=== PATIENT | female | born 1940 | race Caucasian/White ===

== ENCOUNTER 2017-10-03 11:57 | Outpatient (CLI) | payer OTHER | END 2017-10-03 17:00 | disposition home or self-care (01) | LOC: MAMO-SONO 11:57 | DX: Z12.31 Encounter for screening mammogram for malignant neoplasm of breast (principal); Z87.898 Personal history of other specified conditions; N60.11 Diffuse cystic mastopathy of right breast; N60.12 Diffuse cystic mastopathy of left breast ==

== ENCOUNTER 2017-10-12 12:50 | Outpatient (CLI) | payer OTHER | END 2017-10-12 13:00 | disposition home or self-care (01) | LOC: NUCLEAR 12:50 | DX: M81.0 Age-related osteoporosis without current pathological fracture (principal) ==

== ENCOUNTER 2019-07-19 16:00 | Emergency (ER) | payer OTHER ==
[~2019-07-19] VITALS: Ht 165.1 cm; Wt 53.5 kg
[2019-07-19] MEDS ORDERED: SYNTHROID50 MCG (16:43)
== END 2019-07-19 18:50 | disposition home or self-care (01) ==
LOC: ER 16:00
DX: S42.321A Displaced transverse fracture of shaft of humerus, right arm, initial encounter for closed fracture (principal); W18.39XA Other fall on same level, initial encounter; Y93.89 Activity, other specified; Y92.098 Other place in other non-institutional residence as the place of occurrence of the external cause; Y99.8 Other external cause status

== ENCOUNTER 2019-08-13 12:02 | Outpatient (CLI) | payer OTHER ==
[~2019-08-13 12:02] MED LIST: SYNTHROID50 MCG
== END 2019-08-13 16:09 | disposition home or self-care (01) ==
LOC: RAD 12:02
DX: S42.201D Unspecified fracture of upper end of right humerus, subsequent encounter for fracture with routine healing (principal)